=== PATIENT | female | born 1990 | race American Indian/Alaskan Native ===

== ENCOUNTER 2021-06-05 16:29 | Emergency (ER) | payer SELFPAY ==
[2021-06-05 17:10] VITALS: BP 120/88
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
== END 2021-06-06 01:07 | disposition home or self-care (01) ==
LOC: ED 16:29
DX: S29.012A Strain of muscle and tendon of back wall of thorax, initial encounter (principal); V89.2XXA Person injured in unspecified motor-vehicle accident, traffic, initial encounter; Y93.89 Activity, other specified; Y92.89 Other specified places as the place of occurrence of the external cause; Y99.8 Other external cause status
CPT/HCPCS: 99282